=== PATIENT | male | born 1970 | race Caucasian/White ===

== ENCOUNTER 2016-10-28 11:19 | Day surgery (SDC) | payer OTHER ==
[2016-10-28] MEDS ORDERED: Clindamycin 900mg (Premix) 50 ML IV ONE (13:11)
[2016-10-28] MEDS ORDERED: Lactated Ringers 1,000 ML PRIMARY IV ONE ×2 (13:11→17:23)
[2016-10-28] MEDS ORDERED: LIDOCAINE W/ SODIUM BICARB 0.5 ML SYR ONE (13:11)
[2016-10-28] MEDS ORDERED: MIDAZOLAM 5 MG/1 ML ONE (15:39)
[2016-10-28] MEDS ORDERED: fentaNYL Inj 100 MCG/2 ML VIAL ONE (15:39)
[2016-10-28] MEDS ORDERED: MEPIVACAINE HCL/PF 20 MG/1 ML IV ONE (16:22)
[2016-10-28] MEDS ORDERED: LIDOCAINE 2%/ EPI 1:200,000 - 20 ML VIAL ONE (16:22)
[2016-10-28] MEDS ORDERED: NORMAL SALINE 10 ML SYRINGE FLUSH IVP PRN (17:47)
[2016-10-28] MEDS ORDERED: ONDANSETRON 4 MG/2 ML VIAL IVP PRN (17:47)
[2016-10-28] MEDS ORDERED: IBUPROFEN 400 MG TABLET PO PRN (17:47)
[2016-10-28] MEDS ORDERED: ACETAMINOPHEN 325 MG TABLET PO PRN (17:47)
[2016-10-28] MEDS ORDERED: diphenhydrAMINE 25 MG CAPSULE PO PRN (17:47)
[2016-10-28] MEDS ORDERED: Ondansetron ODT Tab 8 MG TAB PO PRN (17:47)
[2016-10-28] MEDS ORDERED: BISACODYL 5 MG TABLET PO PRN (17:47)
[2016-10-28] MEDS ORDERED: MORPHINE SULFATE 2 MG/1 ML IVP PRN (17:47)
[2016-10-28] MEDS ORDERED: MAG HYDROX/AL HYDROX/SIMETH 30 ML SUSP PO PRN (17:47)
[2016-10-28] MEDS ORDERED: BISACODYL 10 MG SUPPOSITORY RECTAL PRN (17:47)
[2016-10-28] MEDS ORDERED: oxyCODONE-ACETAMINOPHEN 5-325 TAB PO PRN (17:47)
[2016-10-28] MEDS ORDERED: Prochlorperazine Tab 10 MG TAB PO PRN (17:47)
[2016-10-28] MEDS ORDERED: CALCIUM CARBONATE 500 MG (TUMS) CHEWABLE TABLET PO PRN (17:47)
[2016-10-28] MEDS ORDERED: Lactated Ringers 1,000 ML PRIMARY IV SCH (18:00)
[2016-10-28 18:18] VITALS: RESP 15
[2016-10-28 18:59] VITALS: TEMP 97
== END 2016-10-28 18:55 | disposition home or self-care (01) ==
LOC: SDSC 11:19
PROVIDERS: ATTEND Orthopaedic Surgery
DX: G56.01 Carpal tunnel syndrome, right upper limb (principal); G56.21 Lesion of ulnar nerve, right upper limb
CPT/HCPCS: 64719; 64721; J2704; J3010; J0670; J2250; J3490; J7120

== ENCOUNTER 2016-11-18 06:00 | Day surgery (SDC) | payer OTHER ==
[2016-11-18] MEDS ORDERED: Clindamycin 900mg (Premix) 50 ML IV ONE (06:05)
[2016-11-18] MEDS: LIDOCAINE W/ SODIUM BICARB 0.5 ML SYR ONE (06:35)
[2016-11-18] MEDS: Lactated Ringers 1,000 ML PRIMARY IV ONE (06:40)
[2016-11-18 07:23] VITALS: RESP 20
[2016-11-18] MEDS ORDERED: LIDOCAINE 2%/ EPI 1:200,000 - 20 ML VIAL ONE (08:28)
[2016-11-18] MEDS ORDERED: MIDAZOLAM 5 MG/1 ML ONE (08:28)
[2016-11-18] MEDS ORDERED: fentaNYL Inj 100 MCG/2 ML VIAL ONE (08:28)
[2016-11-18] MEDS ORDERED: EPINEPHrine Inj (1:1,000) 30mg/30ml vial ONE (08:30)
[2016-11-18] MEDS ORDERED: BUPIVACAINE 0.5% W/ EPI - 10 ML VIAL ONE (08:30)
[2016-11-18] MEDS ORDERED: Ropivacaine 0.2% VIAL 20 ML ONE (08:30)
--- NOTE | 2016-11-18 10:48 | CRNA.PROCE ---
Nerve Block Documentation - - Safety Measures: Time Out Taken, Site Verified - - Type of Nerve Block Used: Right Interscalene Block Position for Nerve Block: Supine Moniters Used During Block: EKG, SPO2, NIBP Oxygen Sumpplented: Yes Sedation Used - Enter Amount in Comment Field: Midazolam (mg): Yes (3mg iv preop ), Fentanyl (mcg): Yes (50mcg iv preop) Skin Prep Used: ChloroPrep Draped: Yes Technique: Nerve Stimulator Nerve Block Needle Used: 40 mm ProBlk II Stimulation Hz: 1.0 Stimulation Staring mA: 1.2 Stimulation Ending mA: 0.5 Local Anesthetic - Enter Amt in Comment Field: 0.5 % Bupivicaine with Epinephrine 1:200,000 (mL): Yes (20ml), 2 % Xylocaine with Epinephrine 1:200, 000 (mL): Yes (20ml)
[2016-11-18] MEDS ORDERED: Lactated Ringers 1,000 ML PRIMARY IV ONE (12:20)
[2016-11-18] MEDS ORDERED: ACETAMINOPHEN 325 MG TABLET PO PRN (12:39)
[2016-11-18] MEDS ORDERED: IBUPROFEN 400 MG TABLET PO PRN (12:39)
[2016-11-18] MEDS ORDERED: Prochlorperazine Tab 10 MG TAB PO PRN (12:39)
[2016-11-18] MEDS ORDERED: BISACODYL 5 MG TABLET PO PRN (12:39)
[2016-11-18] MEDS ORDERED: BISACODYL 10 MG SUPPOSITORY RECTAL PRN (12:39)
[2016-11-18] MEDS ORDERED: MORPHINE SULFATE 2 MG/1 ML IVP PRN (12:39)
[2016-11-18] MEDS ORDERED: ONDANSETRON 4 MG/2 ML VIAL IVP PRN (12:39)
[2016-11-18] MEDS ORDERED: CALCIUM CARBONATE 500 MG (TUMS) CHEWABLE TABLET PO PRN (12:39)
[2016-11-18] MEDS ORDERED: Ondansetron ODT Tab 8 MG TAB PO PRN (12:39)
[2016-11-18] MEDS ORDERED: NORMAL SALINE 10 ML SYRINGE FLUSH IVP PRN (12:39)
[2016-11-18] MEDS ORDERED: diphenhydrAMINE 25 MG CAPSULE PO PRN (12:39)
[2016-11-18] MEDS ORDERED: MAG HYDROX/AL HYDROX/SIMETH 30 ML SUSP PO PRN (12:39)
[2016-11-18] MEDS ORDERED: oxyCODONE/APAP 7.5/325 Tab 1 TAB TAB PO PRN (12:39)
[2016-11-18] MEDS ORDERED: Lactated Ringers 1,000 ML PRIMARY IV SCH (12:45)
[2016-11-18 13:50] VITALS: TEMP 97.5
--- NOTE | 2016-11-18 15:45 | OPS SHOULD ---
Diagnosis : Right Shoulder RCR, MARY, Mira, Open Biceps Referral Reason: Instruction in Activities of Daily Living/Shoulder Cryo Cuff O: The patient was instructed in activities of daily living including dressing and bathing, as well shoulder do's and don'ts. The patient was issued a cryo cuff for the right shoulder and instructed in its proper use and care. P: No further therapy is indicated at this time. The patient will begin outpatient physical therapy. DONOVAND
== END 2016-11-18 14:45 | disposition home or self-care (01) ==
LOC: SDSC 06:00
PROVIDERS: ATTEND Orthopaedic Surgery
DX: M75.21 Bicipital tendinitis, right shoulder (principal); M75.41 Impingement syndrome of right shoulder; M19.011 Primary osteoarthritis, right shoulder; M75.121 Complete rotator cuff tear or rupture of right shoulder, not specified as traumatic
CPT/HCPCS: 23430; 29824; 29826; 29827; 87641; 97535; J0171; J2704; J2795; J3010; J2250; J3490; J7120